=== PATIENT | male | born 1945 | race Caucasian/White ===

== ENCOUNTER → 2018-11-18 | Outpatient (CLI) | payer MEDICARE ==
[2018-11-18 07:10] LABS: HCT 41.6 % (39.0-53.0); HGB 13.5 gm/dL (13.0-17.5); MCH 32.7 pg (25.0-35.0); MCHC 32.3 g/dL (31.0-37.0); MCV 101.1 fL (80.0-100.0); Macrocytosis Slight; Mean Platelet Volume 8.3; Platelet Count 146 k/uL (150-450); RBC 4.11 m/uL (4.30-5.90); RDW 13.1 % (11.5-15.5); WBC 5.7 k/uL (3.8-10.6)
[2018-11-18 07:23] LABS: Appearance,Urine Clear (Clear); Bilirubin,Urine Negative (Negative); Blood,Urine Negative (Negative); Color,Urine Light Yellow; Glucose,Urine (UA) Negative (Negative); Ketones,Urine Negative (Negative); Leukocyte Esterase,Urine Negative (Negative); Nitrite,Urine Negative (Negative); PH, Urine 5.5 (5.0-8.0); Protein,Urine Negative (Negative); Specific Gravity,Urine 1.016 (1.001-1.035); Urobilinogen,Urine <2.0 mg/dL (<2.0)
[2018-11-18 12:08] LABS: Albumin 4.1 g/dL (3.80-4.90); Albumin/Globulin Ratio 2.41 (1.60-3.17); Anion Gap 5.6 mmol/L (4.00-12.00); Calcium 9.2 mg/dL (8.7-10.3); Carbon Dioxide 29.4 mmol/L (21.6-31.8); Globulin 1.7 g/dL (1.6-3.3); LDL Cholesterol,Calculated 88.2 mg/dL (0.0-131.0); Potassium 4.4 mmol/L (3.5-5.5); Total Bilirubin 0.5 mg/dL (0.2-1.2); Total Protein 5.8 g/dL (6.2-8.2); VLDL Calculation 15.8 mg/dL (5.00-40.00)
== END | disposition home or self-care (01) ==
LOC: LABWHC1 06:41
PROVIDERS: ATTEND Internal Medicine
DX: I10 Essential (primary) hypertension (principal); M51.36 Other intervertebral disc degeneration, lumbar region; L40.8 Other psoriasis; Z12.5 Encounter for screening for malignant neoplasm of prostate
CPT/HCPCS: 80061; 80053; 85027; 81003; 36415; G0103

== ENCOUNTER 2019-03-19 09:25 | Day surgery (SDC) | payer MEDICARE ==
[2019-03-18 10:37] VITALS: BMI 28.1
[~2019-03-19 09:25] MED LIST: DEXAMETHASONE SOD PHOSPHATE 10 MG/ML 1 ML VIAL IV ONE; LACTATED RINGERS 1,000 ML IV SCH; LIDOCAINE 1% 20 ML VIAL (10MG/ML) FOR IV START INTRADERMA PRN; MIDAZOLAM 2 MG/2 ML VIAL IV PRN; fentaNYL (PF) 50 MCG/ML 2 ML AMP IV PRN
[2019-03-19 10:18] VITALS: TEMP 97
[2019-03-19] MEDS ORDERED: PROPOFOL 10 MG/ML 20 ML VIAL IV ONE (11:09)
--- NOTE | 2019-03-19 11:20 | P.GSHP ---
History of Present Illness H&P Date: 03/19/19 Chief Complaint: Colon cancer screening 73-year-old male here today for screening colonoscopy. Last colonoscopy several years ago. No family history of colon cancer. No bowel related complaints. Past Medical History Past Medical History: Cancer, GERD/Reflux, Hyperlipidemia, Hypertension, Prostate Disorder Additional Past Medical History / Comment(s): in situ melanoma shoulder History of Any Multi-Drug Resistant Organisms: MRSA Date of last positivie culture/infection: 2014 MDRO Source:: unknown Past Surgical History: Prostate Surgery, Tonsillectomy Additional Past Surgical History / Comment(s): melanoma removed, benign "lump" removed from head, finger surgery tendon repaired, TURP Past Anesthesia/Blood Transfusion Reactions: No Reported Reaction Smoking Status: Never smoker - Past Family History Father Family Medical History: Cancer Brother(s) Family Medical History: Cancer Medications and Allergies Home Medications Medication Instructions Recorded Confirmed Type Fexofenadine HCl [Felicia Allergy] 180 mg PO HS 03/18/19 03/19/19 History Hydrochlorothiazide 12.5 mg PO HS 03/18/19 03/19/19 History Losartan Potassium 50 mg PO HS 03/18/19 03/19/19 History Naproxen Sodium 220 mg PO DAILY PRN 03/18/19 03/19/19 History Simvastatin [Zocor] 20 mg PO HS 03/18/19 03/19/19 History Tamsulosin HCl [Flomax] 0.4 mg PO HS 03/18/19 03/19/19 History Allergies Allergy/AdvReac Type Severity Reaction Status Date / Time meperidine [From Demerol] Allergy Unknown Verified 03/19/19 10:01 Surgical - Exam Vital Signs Temp Pulse Resp BP Pulse Ox 97.0 F L 68 16 154/71 98 03/19/19 10:10 03/19/19 10:10 03/19/19 10:10 03/19/19 10:10 03/19/19 10:10 Physical exam: General: Well-developed, well-nourished HEENT: Normocephalic, sclerae nonicteric Abdomen: Nontender, nondistended Extremities: No edema Neuro: Alert and oriented Assessment and Plan (1) Colon cancer screening Narrative/Plan: Will proceed with colonoscopy Current Visit: Yes Status: Acute Code(s): Z12.11 - ENCOUNTER FOR SCREENING FOR MALIGNANT NEOPLASM OF COLON SNOMED Code(s): 324477440
--- NOTE | 2019-03-19 11:38 | P.PCN ---
Date of Procedure: 03/19/19 Procedure(s) Performed: PREOPERATIVE DIAGNOSIS: Colon cancer screening POSTOPERATIVE DIAGNOSIS: Diverticulosis, poor prep PROCEDURE: Colonoscopy ANESTHESIA: MAC SURGEON: Rebel Huertas M.D. SPECIMENS: None ENDOSCOPIC PROCEDURE: The patient was placed on the endoscopy table in the left decubitus position. The Olympus colonoscope was inserted into the anus and passed under direct visualization to the base of the cecum. The appendiceal orifice was visualized. From that point the scope was slowly withdrawn inspecting all surfaces carefully. There were no neoplastic inflammatory or polypoid lesions throughout the cecum, ascending, transverse, descending, sigmoid and rectum. There was extensive diverticulosis noted throughout the colon. The patient's prep likely partly related to the diverticulosis was suboptimal. I would estimate 80% or so of the mucosal surfaces were well visualized. Digital rectal examination was normal. The patient was taken to the recovery room in stable condition per anesthesia guidelines. RECOMMENDATIONS: Resume diet. Poor prep will be discussed with the patient. He stated before the procedure that he has a hard time cleaning himself out because of the diverticulosis. Consider short-term follow-up if the patient develops any GI related symptoms.
[2019-03-19 11:46] VITALS: RESP 18
[2019-03-19 12:10] VITALS: BP 153/80; PULSE 57
== END 2019-03-19 12:22 | disposition home or self-care (01) ==
LOC: ORWHC2ENDO 09:25
PROVIDERS: ATTEND Surgery
DX: Z12.11 Encounter for screening for malignant neoplasm of colon (principal); K57.30 Diverticulosis of large intestine without perforation or abscess without bleeding; K21.9 Gastro-esophageal reflux disease without esophagitis; E78.5 Hyperlipidemia, unspecified; I10 Essential (primary) hypertension; N40.0 Benign prostatic hyperplasia without lower urinary tract symptoms; Z85.820 Personal history of malignant melanoma of skin; Z86.14 Personal history of Methicillin resistant Staphylococcus aureus infection; Z87.438 Personal history of other diseases of male genital organs; Z79.899 Other long term (current) drug therapy; Z88.5 Allergy status to narcotic agent; Z90.89 Acquired absence of other organs; Z90.79 Acquired absence of other genital organ(s); Z80.9 Family history of malignant neoplasm, unspecified
CPT/HCPCS: J2704; G0121

== ENCOUNTER 2020-03-19 07:10 | Day surgery (SDC) | payer MEDICARE ==
[2020-03-17 10:08] VITALS: BMI 27.8
--- NOTE | 2020-03-17 21:34 | P.GSHP ---
History of Present Illness H&P Date: 03/16/20 Chief Complaint: Weak urinary stream The patient is a 74-year-old white male who underwent a TURP in 2011. He reports persistent voiding symptoms, and bladder emptying is incomplete. In view of this, cystoscopy was performed. There is no evidence of a urethral stricture. What appears to be an entrance into the bladder arises from the right prostatic urethra. He now comes for cystoscopy and resection of residual prostatic tissue. - Constitutional Constitutional: Denies chills, Denies fever - Gastrointestinal Gastrointestinal: Reports constipation, Reports diarrhea, Reports heartburn - Genitourinary (Male) Genitourinary: Reports as per HPI Past Medical History Past Medical History: Cancer, GERD/Reflux, Hyperlipidemia, Hypertension, Prostate Disorder Additional Past Medical History / Comment(s): in situ melanoma shoulder History of Any Multi-Drug Resistant Organisms: MRSA Date of last positivie culture/infection: 2014 MDRO Source:: unknown Past Surgical History: Prostate Surgery, Tonsillectomy Additional Past Surgical History / Comment(s): melanoma removed, benign "lump" removed from head, finger surgery tendon repaired, TURP Past Anesthesia/Blood Transfusion Reactions: No Reported Reaction Past Psychological History: No Psychological Hx Reported Past Alcohol Use History: Occasional - Past Family History Father Family Medical History: Cancer Brother(s) Family Medical History: Cancer Medications and Allergies Home Medications Medication Instructions Recorded Confirmed Type Fexofenadine HCl [Felicia Allergy] 180 mg PO HS 03/18/19 03/17/20 History Hydrochlorothiazide 12.5 mg PO HS 03/18/19 03/17/20 History [hydroCHLOROthiazide] Losartan Potassium 50 mg PO HS 03/18/19 03/17/20 History Naproxen Sodium 220 mg PO DAILY PRN 03/18/19 03/17/20 History Simvastatin [Zocor] 20 mg PO HS 03/18/19 03/17/20 History Tamsulosin HCl [Flomax] 0.8 mg PO HS 03/18/19 03/17/20 History Docusate [Colace] 100 mg PO DAILY 03/17/20 03/17/20 History Famotidine [Pepcid] 20 mg PO HS 03/17/20 03/17/20 History Inulin/Chromium Picolinate [Fiber 1 each PO DIRECTED 03/17/20 03/17/20 History Gummies Chew] Allergies Allergy/AdvReac Type Severity Reaction Status Date / Time meperidine [From Demerol] Allergy Unknown Verified 03/17/20 10:01 Surgical - Exam - General well developed, well nourished, no distress - Neck no masses, trachea midline - Respiratory normal respiratory effort, clear to auscultation - Cardiovascular Rhythm: regular Abnormal Heart Sounds: no systolic murmur, no diastolic murmur, no rub, no S3 Ga llop, no S4 Gallop, no click, no other - Abdomen Abdomen: soft, non tender, no guarding, no rigid, no rebound - Genitourinary normal penis with no external lesions, testicles non-tender - Rectum Rectum: normal sphincter tone, no masses, other (prostate moderately enlarged but smooth) - Psychiatric oriented to time, oriented to person, oriented to place, speech is normal, memory intact Assessment and Plan (1) Benign prostatic hyperplasia with lower urinary tract symptoms Status: Acute Code(s): N40.1 - BENIGN PROSTATIC HYPERPLASIA WITH LOWER URINARY TRACT SYMP SNOMED Code(s): 267913752 Plan: Cystoscopy under anesthesia, with resection of residual prostatic tissue (TURP). The procedure was reviewed in detail with the patient and his . It was made clear that the anatomy is somewhat unclear at this time. Limited resection will be performed to allow delineation of the anatomy. This will hopefully allow a more formal resection to be performed to enhance bladder emptying. Potential risks include anesthesia, bleeding, infection, urinary incontinence, and persistent incomplete bladder emptying.
[~2020-03-19 07:10] MED LIST changes: +HYDROmorphone 0.5 MG/0.5 ML SYRINGE IVP PRN; +LIDOCAINE 1% (10MG/ML) FOR IV START INTRADERMA PRN; -LIDOCAINE 1% 20 ML VIAL (10MG/ML) FOR IV START INTRADERMA PRN; -MIDAZOLAM 2 MG/2 ML VIAL IV PRN; +ONDANSETRON 4 MG/2 ML VIAL IVP ONE; +ONDANSETRON 4 MG/2 ML VIAL IVP PRN; -fentaNYL (PF) 50 MCG/ML 2 ML AMP IV PRN
[2020-03-19 07:42] VITALS: RESP 16; TEMP 98
[2020-03-19] MEDS ORDERED: fentaNYL (PF) 50 MCG/ML 2 ML AMP ONE (09:12)
[2020-03-19] MEDS ORDERED: MIDAZOLAM 2 MG/2 ML VIAL ONE (09:12)
[2020-03-19] MEDS ORDERED: ePHEDrine SULFATE/0.9% NACL/PF 50 MG/5 ML SYRINGE IV ONE (09:12)
[2020-03-19] MEDS ORDERED: LIDOCAINE 1% INJ 10MG/ML (20 ML MDV) ONE (09:12)
[2020-03-19] MEDS ORDERED: PROPOFOL 10 MG/ML 20 ML VIAL IV ONE (09:12)
[2020-03-19] MEDS ORDERED: SUCCINYLCHOLINE CHLORIDE VIAL 200 MG/10 ML VIAL IV ONE (09:12)
--- NOTE | 2020-03-19 12:10 | P.OP ---
Date of Procedure: 03/19/20 Preoperative Diagnosis: BPH with obstruction, vesical neck contracture Postoperative Diagnosis: Same Procedure(s) Performed: Cystoscopy, bipolar transurethral resection of prostate (TURP) Anesthesia: JACY Surgeon: Kalpesh Mann Estimated Blood Loss (ml): 50 IV fluids (ml): 900 Pathology: other (Prostate tissue) Condition: stable Disposition: PACU Indications for Procedure: The patient is a 74-year-old white male who underwent a TURP in 2011. He report s persistent voiding symptoms, and bladder emptying is incomplete. In view of this, cystoscopy was performed. There is no evidence of a urethral stricture. What appears to be an entrance into the bladder arises from the right prostatic urethra. He now comes for cystoscopy and resection of residual prostatic tissue. Operative Findings: Vesical neck contracture. Considerable residual left lateral lobe tissue. Description of Procedure: The patient was taken in the operating room and placed in the dorsolithotomy position. The external genitalia was prepped and draped sterilely. The 25- Divehi ACMI resectoscope sheath was introduced into the bladder under direct vision. The vesical neck contracture was noted, to the right of the midline. Intraprostatic adhesions were noted. With the irrigant fluid running, the intraprostatic adhesions opened enough to better delineate the anatomy. Using the bipolar cutting loop, tissue to the left of the vesical neck was resected enough to allow passage of the resectoscope into the bladder. The bladder appeared unremarkable. No tumors or foreign bodies were seen. The ureteral orifices were well away from the vesical neck. The vesical neck was then incised at the 6 o'clock position, up to the level of the verumontanum. It was apparent at this time that there was considerable residual left lateral lobe tissue. This was resected down to the surgical capsule. A small amount of anterior and right-sided tissue was resected. The floor of the prostate was resected, proximal to the verumontanum. The remaining apical tissue was then carefully resected. The prostatic fossa was then carefully examined, and any areas of bleeding were controlled with electrocautery. Excellent hemostasis was attained. The resectoscope was withdrawn into the bulbous urethra. The external urinary sphincter remained intact. The prostatic fossa was open. The Tok3n evacuator was used to remove all prostate chips from the bladder. These were saved and sent for pathologic examination. The resectoscope was removed, and a 20 Divehi Lyons catheter was placed. The return was essentially clear. The patient tolerated the procedure well was taken to the recovery room in stable condition.
[2020-03-19 15:05] VITALS: BP 126/76; PULSE 63
== END 2020-03-19 14:50 | disposition home or self-care (01) ==
LOC: OR 07:10
PROVIDERS: ATTEND Urology
DX: N40.1 Benign prostatic hyperplasia with lower urinary tract symptoms (principal); N13.8 Other obstructive and reflux uropathy; I10 Essential (primary) hypertension; E78.5 Hyperlipidemia, unspecified; K21.9 Gastro-esophageal reflux disease without esophagitis; Z88.5 Allergy status to narcotic agent; Z79.899 Other long term (current) drug therapy; Z86.14 Personal history of Methicillin resistant Staphylococcus aureus infection; Z98.890 Other specified postprocedural states; Z80.9 Family history of malignant neoplasm, unspecified
CPT/HCPCS: 88305; 52601; J2250; J0330; J1100; J0690; J2405; J2001; J3010; J2704; J1170

== ENCOUNTER 2020-11-14 16:23 | Emergency (ER) | payer MEDICARE ==
[2020-11-14 16:30] VITALS: RESP 18; TEMP 98.5
[2020-11-14] MEDS ORDERED: SODIUM CHLORIDE 0.9% 1,000 ML IV STA (16:49)
[2020-11-14 17:02] LABS: Basophils # (A) 0.1 k/uL (0-0.2); Basophils % (A) 1 %; Eosinophils # (A) 0.1 k/uL (0-0.7); Eosinophils % (A) 2 %; HCT 37.4 % (39.0-53.0); Lymphocytes # (A) 1.4 k/uL (1.0-4.8); Lymphocytes % (A) 19 %; MCH 35.1 pg (25.0-35.0); MCHC 34.7 g/dL (31.0-37.0); Macrocytosis Slight; Mean Platelet Volume 7.8; Monocytes # (A) 0.5 k/uL (0-1.0); Monocytes % (A) 7 %; Neutrophils # (A) 4.8 k/uL (1.3-7.7); Neutrophils % (A) 69 %; Platelet Count 131 k/uL (150-450); RDW 13.7 % (11.5-15.5)
--- NOTE | 2020-11-14 17:09 | ED ---
Male Urogenital HPI - General Chief complaint: Urogenital Stated complaint: blood in urine Time Seen by Provider: 11/14/20 16:32 Source: patient Mode of arrival: ambulatory Limitations: no limitations - History of Present Illness Initial comments: 75-year-old male presents to emergency department with a chief complaint of blood in the urine. States this occurred earlier today with gradual increase in severity. Patient reports undergoing to TURP procedures with the most recent in June. He reports dysuria but denies increased urgency or frequency. He denies any abdominal pain, back pain, chest pain or shortness of breath. Denies any fevers or chills. Denies any penile discharge, testicular swelling or erythema. - Related Data Home Medications Medication Instructions Recorded Confirmed Fexofenadine HCl [Felicia Allergy] 180 mg PO HS 03/18/19 03/19/20 Hydrochlorothiazide 12.5 mg PO HS 03/18/19 03/19/20 [hydroCHLOROthiazide] Losartan Potassium 50 mg PO HS 03/18/19 03/19/20 Naproxen Sodium 220 mg PO DAILY PRN 03/18/19 03/19/20 Simvastatin [Zocor] 20 mg PO HS 03/18/19 03/19/20 Tamsulosin HCl [Flomax] 0.8 mg PO HS 03/18/19 03/19/20 Docusate [Colace] 100 mg PO DAILY 03/17/20 03/19/20 Famotidine [Pepcid] 20 mg PO HS 03/17/20 03/19/20 Inulin/Chromium Picolinate [Fiber 1 each PO DIRECTED 03/17/20 03/19/20 Gummies Chew] Previous Rx's Medication Instructions Recorded Ciprofloxacin HCl [Cipro] 500 mg PO Q12HR #20 tablet 11/14/20 Allergies Allergy/AdvReac Type Severity Reaction Status Date / Time meperidine [From Demerol] Allergy Unknown Verified 11/14/20 16:31 Review of Systems ROS Statement: Those systems with pertinent positive or pertinent negative responses have been documented in the HPI. ROS Other: All systems not noted in ROS Statement are negative. Past Medical History Past Medical History: Cancer, GERD/Reflux, Hyperlipidemia, Hypertension, Prostate Disorder Additional Past Medical History / Comment(s): in situ melanoma shoulder History of Any Multi-Drug Resistant Organisms: MRSA Date of last positivie culture/infection: 2015 MDRO Source:: unknown Past Surgical History: Prostate Surgery, Tonsillectomy Additional Past Surgical History / Comment(s): melanoma removed, benign "lump" removed from head, finger surgery tendon repaired, TURP Past Anesthesia/Blood Transfusion Reactions: No Reported Reaction Past Psychological History: No Psychological Hx Reported Smoking Status: Never smoker Past Alcohol Use History: None Reported Past Drug Use History: None Reported - Past Family History Father Family Medical History: Cancer Brother(s) Family Medical History: Cancer General Exam Limitations: no limitations General appearance: alert, in no apparent distress Head exam: Present: atraumatic, normocephalic, normal inspection Eye exam: Present: normal appearance, PERRL, EOMI Pupils: Present: normal accommodation ENT exam: Present: normal exam, normal oropharynx, mucous membranes moist, TM's normal bilaterally, normal external ear exam Neck exam: Present: normal inspection, full ROM. Absent: tenderness Respiratory exam: Present: normal lung sounds bilaterally. Absent: respiratory distress, wheezes, rales, rhonchi, stridor, chest wall tenderness, accessory muscle use Cardiovascular Exam: Present: regular rate, normal rhythm, normal heart sounds. Absent: systolic murmur GI/Abdominal exam: Present: soft. Absent: distended, tenderness, guarding, rigid exam: Present: normal inspection. Absent: testicular tenderness, urethral discharge, scrotal swelling, vertical testicular lie Extremities exam: Present: normal inspection, full ROM, normal capillary refill. Absent: tenderness Back exam: Present: normal inspection, full ROM. Absent: tenderness, CVA ten derness (R), CVA tenderness (L) Neurological exam: Present: alert, oriented X3 Psychiatric exam: Present: normal affect, normal mood Skin exam: Present: warm, dry, intact, normal color Course Vital Signs 11/14/20 16:28 Temperature 98.5 F Pulse Rate 68 Respiratory 18 Rate Blood Pressure 158/95 O2 Sat by Pulse 98 Oximetry Medical Decision Making - Medical Decision Making 75-year-old male presents to the emergency room with a chief complaint of blood in the urine. On physical examination, no acute findings. examination is unremarkable. CMP reveals mild elevation and BUN of 21. Patient was given 1 L of IV bolus fluids. UA positive for red blood cells, trace amounts of leukocyte esterase and elevated white blood cells. Urine culture is pending. Patient did report having some dysuria today. I will start the patient on Cipro and advised him about the side effects of medication. Advised him to follow up with his urologist. Return primers were thoroughly discussed the patient was upsetting agreeable. Case discussed with Dr. Vinson. - Lab Data Result diagrams: 11/14/20 16:56 11/14/20 16:56 Lab Results 11/14/20 11/14/20 11/14/20 Range/Units 16:56 16:56 17:50 WBC 7.0 (3.8-10.6) k/uL RBC 3.70 L (4.30-5.90) m/uL Hgb 13.0 (13.0-17.5) gm/dL Hct 37.4 L (39.0-53.0) % MCV 101.0 H (80.0-100.0) fL MCH 35.1 H (25.0-35.0) pg MCHC 34.7 (31.0-37.0) g/dL RDW 13.7 (11.5-15.5) % Plt Count 131 L (150-450) k/uL MPV 7.8 Neutrophils % 69 % Lymphocytes % 19 % Monocytes % 7 % Eosinophils % 2 % Basophils % 1 % Neutrophils # 4.8 (1.3-7.7) k/uL Lymphocytes # 1.4 (1.0-4.8) k/uL Monocytes # 0.5 (0-1.0) k/uL Eosinophils # 0.1 (0-0.7) k/uL Basophils # 0.1 (0-0.2) k/uL Macrocytosis Slight Sodium 138 (137-145) mmol/L Potassium 4.0 (3.5-5.1) mmol/L Chloride 104 (98-107) mmol/L Carbon Dioxide 25 (22-30) mmol/L Anion Gap 9 mmol/L BUN 21 H (9-20) mg/dL Creatinine 1.06 (0.66-1.25) mg/dL Est GFR (CKD-EPI)AfAm 81 (>60 ml/min/1.73 sqM) Est GFR (CKD-EPI)NonAf 70 (>60 ml/min/1.73 sqM) Glucose 107 H (74-99) mg/dL Calcium 9.6 (8.4-10.2) mg/dL Urine Color Light Red Urine Appearance Cloudy (Clear) Urine pH 5.5 (5.0-8.0) Ur Specific Hardy 1.009 (1.001-1.035) Urine Protein 1+ H (Negative) Urine Glucose (UA) Negative (Negative) Urine Ketones Negative (Negative) Urine Blood Large H (Negative) Urine Nitrite Negative (Negative) Urine Bilirubin Negative (Negative) Urine Urobilinogen <2.0 (<2.0) mg/dL Ur Leukocyte Esterase Trace H (Negative) Urine RBC 94 H (0-5) /hpf Urine WBC 18 H (0-5) /hpf Urine Bacteria Occasional H (None) /hpf Urine Mucus Occasional H (None) /hpf Disposition Clinical Impression: Hematuria, Urinary tract infection Disposition: HOME SELF-CARE Condition: Stable Instructions (If sedation given, give patient instructions): Urinary Tract Infection in Men (ED) Additional Instructions: Please return to the Emergency Department if symptoms worsen or any other concerns. Follow-up with your urologist. Prescriptions: Ciprofloxacin HCl [Cipro] 500 mg PO Q12HR #20 tablet Is patient prescribed a controlled substance at d/c from ED?: No Referrals: Ángel Velasco DO [Primary Care Provider] - 1-2 days Time of Disposition: 18:43
[2020-11-14 17:21] LABS: Calcium 9.6 mg/dL (8.4-10.2)
[2020-11-14 18:16] LABS: Appearance,Urine Cloudy (Clear); Bacteria,Urine Occasional /hpf; Bilirubin,Urine Negative (Negative); Blood,Urine Large (Negative); Color,Urine Light Red; Glucose,Urine (UA) Negative (Negative); Ketones,Urine Negative (Negative); Leukocyte Esterase,Urine Trace (Negative); Mucus,Urine Occasional /hpf; Nitrite,Urine Negative (Negative); PH, Urine 5.5 (5.0-8.0); Protein,Urine 1+ (Negative); RBC,Urine 94 /hpf (0-5); Specific Gravity,Urine 1.009 (1.001-1.035); Urobilinogen,Urine <2.0 mg/dL (<2.0); WBC,Urine 18 /hpf (0-5)
[2020-11-14 19:06] VITALS: BP 152/103; PULSE 60
== END 2020-11-14 19:06 | disposition home or self-care (01) ==
LOC: EC 16:23
DX: N39.0 Urinary tract infection, site not specified (principal); E78.5 Hyperlipidemia, unspecified; I10 Essential (primary) hypertension; K21.9 Gastro-esophageal reflux disease without esophagitis; Z79.899 Other long term (current) drug therapy; Z85.820 Personal history of malignant melanoma of skin
CPT/HCPCS: 36415; 80048; 81001; 85025; 87086; 99283